=== PATIENT | male | born 2005 | race Caucasian/White ===

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

== ENCOUNTER 2024-01-20 19:41 | Emergency (ER) | payer OTHER, SELFPAY ==
[2024-01-20 19:46] VITALS: BP 132/80; PULSE 94; O2SAT 100
[2024-01-20 20:06] VITALS: BP 141/72; PULSE 90; RESP 20; TEMP 36.9; O2SAT 99; BMI 23.5
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
== END 2024-01-20 21:37 | disposition left against medical advice (07) ==
LOC: HO.ED 21:32
PROVIDERS: Emergency Provider Internal Medicine
DX: S69.92XA Unspecified injury of left wrist, hand and finger(s), initial encounter (principal); S89.92XA Unspecified injury of left lower leg, initial encounter; V43.52XA Car driver injured in collision with other type car in traffic accident, initial encounter; Y93.89 Activity, other specified; Y92.488 Other paved roadways as the place of occurrence of the external cause; Y99.8 Other external cause status
CPT/HCPCS: 99281